=== PATIENT | female | born 1940 | race Caucasian/White ===

== ENCOUNTER → 2016-08-26 | Outpatient (CLI) | payer OTHER ==
[~2016-08-26] MED LIST: ASPI81TA21 PO; CHOL100010 PO; FISHOIL PO; LPR25 PO; TRIATAB3 PO
--- NOTE | 2016-08-26 13:11 | MAMMOGRAPHY REPORT ---
BILATERAL DIGITAL SCREENING MAMMOGRAM WITH CAD: 08/26/2016 CLINICAL HISTORY: Routine screening. Patient has no complaints. TECHNIQUE: Current study was also evaluated with a Computer Aided Detection (CAD) system. Bilatera l CC and MLO views were obtained. COMPARISON: Comparison is made to exams dated: 08/24/2015 mammogram, 08/20/2014 mammogram, 08/19/2013 mammogram, 08/17/2012 mammogram, 02/27/2012 mammogram, and 08/23/2011 mammogram - [facility]. BREAST COMPOSITION: There are scattered areas of fibroglandular density in both breasts. FINDINGS: No suspicious masses, calcifications, or areas of architectural distortion are noted in e ither breast. There has been no significant interval change compared to prior exams. IMPRESSION: ACR BI-RADS CATEGORY 1: NEGATIVE There is no mammographic evidence of malignancy. A 1 year screening mammogram is recommended. The p atient will receive written notification of the results. Approximately 10% of breast cancers are not detected with mammography. A negative mammographic repor t should not delay biopsy if a clinically suggestive mass is present. Radha Ross M.D. /:08/26/2016 12:13:16 Lead Massage Therapist: Seema GUALLPA(Jewel)(Torrie)(BD), [facility] letter sent: Normal 1/2 BI-RADS Code: ACR BI-RADS Category 1: Negative
== END | disposition home or self-care (01) ==
LOC: C.MAMM 11:06
PROVIDERS: ATTEND Internal Medicine
DX: Z12.31 Encounter for screening mammogram for malignant neoplasm of breast (principal)

== ENCOUNTER → 2017-08-14 | Outpatient (CLI) | payer OTHER ==
[~2017-08-14] MED LIST changes: +ASPI-319 PO; -ASPI81TA21 PO
[2017-08-14 17:23] LABS: BASO % 0.6 %; BASO ABS # 0.04 K/uL (0-0.2); EOS % 2.8 %; EOS ABS # 0.18 K/uL (0-0.5); HEMATOCRIT 42.3 % (37-47); HEMOGLOBIN 14.3 g/dL (12.0-16.0); IG# 0.02 K/uL (0.00-0.02); LYMPH % 33.9 %; LYMPH ABS # 2.17 K/uL (1.2-3.4); MEAN CELL VOLUME 84.9 fL (80-100); MEAN CORPUSCULAR HEMOGLOBIN 28.7 pg (25-34); MEAN CORPUSCULAR HGB CONC 33.8 g/dl (32-36); MEAN PLATELET VOLUME 8.8 fL (7.4-10.4); MONO ABS # 0.51 K/uL (0.11-0.59); NEUT % 54.4 %; NEUT ABS # 3.48 K/uL (1.4-6.5); PLATELET COUNT 221 K/uL (130-400); RED CELL DISTRIBUTION WIDTH SD 39.9 fL (36.4-46.3)
[2017-08-14 18:49] LABS: ALBUMIN 3.9 gm/dl (3.4-5.0); ALT/SGPT 40 U/L (12-78); AST/SGOT 24 U/L (15-37); BLOOD UREA NITROGEN 16 mg/dl (7-18); CALCIUM 8.4 mg/dl (8.5-10.1); CARBON DIOXIDE 28 mmol/L (21-32); CREATININE 0.93 mg/dl (0.60-1.20); GLUCOSE 89 mg/dl (70-99); POTASSIUM 3.7 mmol/L (3.5-5.1); SODIUM 141 mmol/L (136-145)
[2017-08-14 18:51] LABS: ALKALINE PHOSPHATASE 108 U/L (45-117); CHOLESTEROL 246 mg/dl (0-200); LDL CHOLESTEROL CALCULATED 140 mg/dl; TOTAL PROTEIN 7.9 gm/dl (6.4-8.2)
== END | disposition home or self-care (01) ==
LOC: C.LABPBG 15:10
PROVIDERS: ATTEND Internal Medicine
DX: I10 Essential (primary) hypertension (principal); R73.01 Impaired fasting glucose; E78.5 Hyperlipidemia, unspecified; E53.8 Deficiency of other specified B group vitamins; I65.29 Occlusion and stenosis of unspecified carotid artery; M54.5 Low back pain; S30.861A Insect bite (nonvenomous) of abdominal wall, initial encounter; W57.XXXA Bitten or stung by nonvenomous insect and other nonvenomous arthropods, initial encounter; E55.9 Vitamin D deficiency, unspecified

== ENCOUNTER → 2017-08-29 | Outpatient (CLI) | payer OTHER ==
--- NOTE | 2017-08-29 13:17 | MAMMOGRAPHY REPORT ---
BILATERAL DIGITAL SCREENING MAMMOGRAM TOMOSYNTHESIS WITH CAD: 08/29/2017 CLINICAL HISTORY: Routine screening. Patient has no complaints. TECHNIQUE: Breast tomosynthesis in addition to standard 2D mammography was performed. Current study was also evaluated with a Computer Aided Detection (CAD) system. COMPARISON: Comparison is made to exams dated: 08/26/2016 mammogram, 08/24/2015 mammogram, 08/19/2013 m ammogram, 02/27/2012 mammogram, 08/20/2014 mammogram, and 08/23/2011 ultrasound - [facility]. BREAST COMPOSITION: There are scattered areas of fibroglandular density in both breasts. FINDINGS: There are a few benign rim calcifications in the breasts. No suspicious mass, architectura l distortion or cluster of microcalcifications is seen. IMPRESSION: ACR BI-RADS CATEGORY 1: NEGATIVE There is no mammographic evidence of malignancy. A 1 year screening mammogram is recommended. The pa tient will receive written notification of the results. Approximately 10% of breast cancers are not detected with mammography. A negative mammographic report should not delay biopsy if a clinically suggestive mass is present. Mi Rajput M.D. ay/:08/29/2017 12:49:31 [place] Cleaner: Denise GUALLPA(Jewel)(Torrie), [facility] letter sent: Normal 1/2 BI-RADS Code: ACR BI-RADS Category 1: Negative
== END | disposition home or self-care (01) ==
LOC: C.MAMM 11:19
PROVIDERS: ATTEND Internal Medicine
DX: Z12.31 Encounter for screening mammogram for malignant neoplasm of breast (principal)

== ENCOUNTER 2025-03-04 05:22 | Observation (INO) ==
--- NOTE | 2025-02-04 15:33 | PAT Medication Instructions ---
Medication Instructions Date of Service February 04, 2025 Home Medications cholecalciferol (vitamin D3) 50 mcg (2,000 unit) tablet 2,000 units PO Q2D flaxseed oil 1,000 mg capsule 1,000 mg PO Q2D metoprolol succinate 25 mg tablet,extended release 24 hr 25 mg PO QAM STOP taking 2 weeks before surgery (or as soon as possible if surgery is within 2 weeks) flaxseed oil 1,000 mg capsule 1,000 mg PO Q2D DO NOT take the morning of surgery cholecalciferol (vitamin D3) 50 mcg (2,000 unit) tablet 2,000 units PO Q2D Take morning of surgery With a small sip of water, OTHERWISE NOTHING TO EAT OR DRINK AFTER MIDNIGHT: metoprolol succinate 25 mg tablet,extended release 24 hr 25 mg PO QAM Other Notes If you have any questions please call us at [phone] or [phone] or [phone] or [phone]
--- NOTE | 2025-02-13 11:26 | Anesthesiology Consultation ---
Date of Service February 13, 2025 Assessment & Plan (1) Encounter for pre-operative examination: - Infectious disease screening: Per assessment on 02/13/25- No known recent infectious disease contacts or current infectious disease symptoms. - Outpatient joint assessment: Pt currently scheduled for inpatient pathway. If surgeon requests review for outpatient joint pathway, patient is not a recommended candidate for outpatient joint program from anesthesia standpoint based on available information. - [place] PCP visit 01/27/25: "The patient presents for a medication follow-up visit. She states that she recently stopped utilizing her losartan due to "hot flashes". She notes that her symptoms have somewhat improved since discontinuing the medication, and she notes that she has been continuing to monitor her blood pressure at home with no substantial worsening in her overall blood pressure. Of note, the patient's initial blood pressure was elevated at 167/90. She remains asymptomatic. Of note, the patient is continuing to have issues with ongoing back pain as well as right hip pain. She states that she is continuing to follow with orthopedics, and she is tentatively scheduled for a right hip arthroplasty.." "Hypertension.. Ongoing issue for the patient. Currently holding losartan. Continue metoprolol. Initial blood pressure elevated; however, manual recheck of 144/84. Continue home monitoring.. Tentatively scheduled for hip arthroplasty. Orthopedic documentation reviewed.. Lumbar spondylosis.. Ongoing issue for the patient. Continue with conservative management. Following with orthopedics." Chart Review Chart Review: Acceptable Risk for Surgery and Patient seen in Pre Admission Testing Teaching & Discussion Pre-Anesthesia Teaching/Discussion Notes: Instructed NPO after midnight before surgery,except medications with 15 cc of water. Medication instructions provi ded according to the PAT guidelines. History Surgery Operation Date: 03/04/25 07:00 Proposed Procedures p Right Total Hip Arthroplasty - Keo Pace MD Height/Weight Height: 5 ft 3 in Weight: 79 kg Allergies Allergy/AdvReac Type Severity Reaction Status Date / Time Triamterene-hydrochlorothiazide AdvReac Leg cramps Uncoded 02/13/25 11:46 Medications Home Medications Medication Instructions Recorded Confirmed Last Taken cholecalciferol (vitamin D3) 50 2,000 units PO Q2D 08/27/18 02/04/25 12/13/23 10:00 mcg (2,000 unit) tablet flaxseed oil 1,000 mg capsule 1,000 mg PO Q2D 02/04/25 02/04/25 Unknown metoprolol succinate 25 mg 25 mg PO QAM 02/04/25 02/04/25 Unknown tablet,extended release 24 hr Past Medical History Medical History Adrenal cortical adenoma Abdomen/Pelvis CT 10/17/23: Stable bilateral adrenal gland nodules with the largest on the left measuring 2.1 cm. These favor benign adenomas. Per [facility] visit 08/28/24, documented notation of adrenal cortical adenoma 2019 which have been "very stable.. they are benign given the length of stability. no further follow-up necessary.." Atherosclerosis of aorta Carotid artery plaque Noted per records Carotid doppler 08/29/23: <50% b/l ICA stenosis Complex renal cyst Abdomen/Pelvis CT 10/17/23: Renal sinus cysts are seen bilaterally, left greater than right. Hiatal hernia Per records, patient denies History of Meniere disease Denies current issues History of prediabetes HTN (hypertension) Hx of migraine headaches Remote hx Hyperlipidemia Hx Hypertensive kidney disease with chronic kidney disease stage III Per records, patient denies Lumbar spondylosis Osteopenia Restless leg syndrome Urinary incontinence Exercise / Class Metabolic Activity II 4-5 Yardwork/Stairs/Walk up hill (one FS: No CP, no SOB) Past Family History Family History Denies family history of Ovarian cancer Prostate cancer Myocardial infarction Breast cancer Colorectal cancer Past Surgical History Surgical History History of cataract surgery R/L History of colonoscopy History of dilatation and curettage Hx of tonsillectomy S/P ALEKSANDR (total abdominal hysterectomy) Age 31 Status post cystoscopy 12/14/2023 Past Anesthesia History No Hx of Anesthesia Complications and No Family Hx of Anesthesia Complications History of PONV No Hx of PONV and Hx of Motion Sickness (Remote hx) Social History Smoking Status: Never smoker Do You Dip or Chew Tobacco: No Hx Alcohol Use: No Hx Substance Use: No substance use type: does not use Review of Systems + Palpitations. Patient denies chest pain, shortness of breath, dyspnea on exertion, fever, chills, cough, wheezing. Physical Exam Vital Signs BP 149/81 P 77 TEMP 97.6 SP02 97%RA RESP 16 Physical Mildly decreased cervical extension range of motion. Full TMJ range of motion. TMD 3 finger breaths Mallampati Score III Dentition: + missing teeth (sides/molars) Lungs: clear throughout to auscultation Cardiac: regular rate and rhythm, no murmurs noted Spine: normal Carotid arteries: negative bruit Extremities: no LE edema Lab Results Anesthesia Preop Results Results Anesthesia Widget: WBC 5.39 K/ul (4.8-10.8) 02/13/25 Hgb 13.8 g/dl (12.0-16.0) 02/13/25 Hct 41.6 % (37.0-47.0) 02/13/25 Plt 221 K/uL (130-400) 02/13/25 Na 142 mmol/L (136-145) 02/13/25 K 3.8 mmol/L (3.5-5.1) 02/13/25 Cl 109 mmol/L (98-107) H 02/13/25 CO2 27 mmol/L (21-32) 02/13/25 BUN 15 mg/dl (6-23) 02/13/25 Creat 0.75 mg/dl (0.6-1.2) 02/13/25 Glucose Level 108 mg/dl (70-99(Fasting)) H 02/13/25 PT 10.5 Seconds (9.0-12.0) 02/13/25 PTT 27 Seconds (21-31) 02/13/25 INR 1.0 (0.9-1.1) 02/13/25 Blood Type B Positive 02/13/25 Antibody Screen NEGATIVE 02/13/25 Testing Electrocardiogram Date: 12/27/24 SR at 66bpm. "Normal ECG" Chest X-Ray Date: 02/13/25 FINDINGS: Stable mild cardiomegaly without pulmonary vascular congestion. Stable hyperexpanded lungs. No consolidation or pleural effusion seen. IMPRESSION: No acute findings. Echocardiogram Date: 08/29/23 EF 65-70%. Mild cLVH. MIld mitral annular calcification. Moderate TR. No RWMA. Other Testing Carotid doppler Date: 08/29/23 <50% B/L ICA stenosis. Antegrade flow in b/l vertebral arteries. B/L subclavian artery signals are normal consistent with no significant arterial occlusion.
--- NOTE | 2025-02-27 07:52 | History & Physical Report ---
Date of Service February 27, 2025 Assessment & Plan (1) Arthritis of right hip: 84-year-old female with right leg pain and discomfort consistent with moderate to advanced hip arthritis along with lumbar spondylosis. I do think her hip is causing her significant problems. It is not just her hip but she has got back disease as well. Plan: We have discussed treatment option with the patient she would like to proceed with hip replacement. I do think this will help her significantly but is not Nestl going to relieve all of her symptoms. The risks and bents of total hip were Splane. Patient understands and desires to proceed. Informed consent is obtained. She is planning on being discharged to home with home health and her 's assistance. Will use aspirin for DVT prophylaxis. Will likely use a cemented stem due to her ageAnd osteoporosis. (2) Prediabetes: (3) Lumbar spondylosis: (4) Hyperlipidemia: (5) Hypertensive kidney disease with CKD stage III: History of Present Illness Chief Complaint: . Right hip and leg pain. Primary Care Provider: GOOD Anderson . The patient is an 84-year-old female from [facility] who presents for treatment of her right hip. She has got a year history of increasing right hip pain discomfort describes gotten worse and more disabling over time. She had more more trouble getting around. She describes lateral hip pain buttock pain groin pain rating down to her knee. Denies any numbness. The medicines help her minimally. She has difficulty putting her shoes and socks on. Is really limiting her quality of life and ability maintain an active lifestyle she would like to have her hip fixed. Allergies Allergy/AdvReac Type Severity Reaction Status Date / Time Triamterene-hydrochlorothiazide AdvReac Leg cramps Uncoded 02/13/25 11:46 Home Medications Medication Instructions Recorded Confirmed Type cholecalciferol (vitamin D3) 50 2,000 units PO Q2D 08/27/18 02/04/25 History mcg (2,000 unit) tablet flaxseed oil 1,000 mg capsule 1,000 mg PO Q2D 02/04/25 02/04/25 History metoprolol succinate 25 mg 25 mg PO QAM 02/04/25 02/04/25 History tablet,extended release 24 hr Past Med/Surg History Problem List Lumbar spondylosis Arthritis of right hip Hypermagnesemia Prediabetes Urinary incontinence (Chronic) Migraine Restless leg syndrome Hypertensive kidney disease with CKD stage III Vitamin D deficiency (Acute) Vitamin B12 deficiency (Acute) Lumbar facet arthropathy (Acute) Hyperlipidemia (Chronic) Hearing loss (Acute) Depression with anxiety (Acute) Encounter for pre-operative examination Hypertension (Chronic) Medical History Lumbar spondylosis History of prediabetes HTN (hypertension) Complex renal cyst Abdomen/Pelvis CT 10/17/23: Renal sinus cysts are seen bilaterally, left greater than right. Carotid artery plaque Noted per records Carotid doppler 08/29/23: <50% b/l ICA stenosis Adrenal cortical adenoma Abdomen/Pelvis CT 10/17/23: Stable bilateral adrenal gland nodules with the largest on the left measuring 2.1 cm. These favor benign adenomas. Per [facility] visit 08/28/24, documented notation of adrenal cortical adenoma 2019 which have been "very stable.. they are benign given the length of stability. no further follow-up necessary.." History of Meniere disease Denies current issues Hyperlipidemia Hx Osteopenia Urinary incontinence Hiatal hernia Per records, patient denies Atherosclerosis of aorta Hypertensive kidney disease with chronic kidney disease stage III Per records, patient denies Restless leg syndrome Hx of migraine headaches Remote hx Surgical History History of dilatation and curettage Hx of tonsillectomy Status post cystoscopy 12/14/2023 History of cataract surgery R/L S/P ALEKSANDR (total abdominal hysterectomy) Age 31 History of colonoscopy Family History Denies family history of Ovarian cancer Prostate cancer Myocardial infarction Breast cancer Colorectal cancer Social History Smoking Status: Never smoker Second Hand Exposure: Yes (hx, many years ago); Do You Dip or Chew Tobacco: No; Hx Alcohol Use: No Hx Substance Use: No Preferred Language: Polish Communication Ability: Effective Visual Impairment: No Limitations Hearing Ability: Hard of Hearing Store Consultant Required: No Beliefs That Will Affect Care: None marital status: Current Living Situation: Spouse current occupational status: retired Feels Safe at Home: Yes Diet: regular Diet Comment: regular caffeine: Yes during the past year weight has: remained stable Dental Care, Regularly: Yes Physical Activity Frequency: 1-2 Times per Week Physical Activity Frequency Comment: Importance of routine aerobic exercise stressed. At minimum 150-200 minute Seatbelt Use: always Sunscreen Use: Yes (As needed) Assistive Devices: None Review of Systems All systems reviewed & are unremarkable except as noted in HPI & below. Physical Exam . Physical examination reveals a pleasant elderly female. Looks in pretty good health. Examination of the right hip reveal patient walks with a cane of a slow gait. She does limp a little bit more on the right side. Leg lengths are pretty equal. She has pain and stiffness with hip motion. Internal rotation in neutral. Negative straight leg raise. No knee effusion. She is neurologically intact. Constitutional WD/WN, vitals as above Respiratory normal respiratory effort, lungs clear to auscultation Cardiovascular RRR, no murmur, no edema Gastrointestinal (Abdomen) normal bowel sounds, soft, nontender, no hepatosplenomegaly Results & Data Results & Data Laboratory Results . Diagnostic Findings . X-rays of the right hip were reviewed. She has a moderate hip arthritis. She has clearly got degenerative changes in her hip. Bone density looks pretty good. She got some lumbar spine disease as well with degenerative scoliosis. PG Care Time/CCT Total # of Minutes Spent Total Time Spent with Patient: Total time spent is greater than 50% in coordination of care (as documented) at patient's floor/unit and/or counseling patient: Coding Level of Care Code None Diagnoses Arthritis of right hip M16.11 Prediabetes R73.03 Lumbar spondylosis M47.816 Hyperlipidemia, unspecified hyperlipidemia type E78.5 Hyperlipidemia type: unspecified Hypertensive kidney disease with CKD stage III I12.9; N18.30 (4) Hyperlipidemia Hyperlipidemia type: unspecified Qualified Code(s): E78.5 - Hyperlipidemia, unspecified
[2025-03-04] MEDS: LR 500ML BOLUS, THEN 15ML/HR IV SCH (05:58)
[2025-03-04] MEDS: LR 60ML/HR IV SCH (05:59)
[2025-03-04] MEDS: ACETAMINOPHEN 500 MG TAB PO SCH ×2 (05:59→13:52)
[2025-03-04] MEDS: dexAMETHasone**PF** 10 MG/ML VIAL IV SCH (05:59)
[2025-03-04] MEDS: CeleBREX 200 MG CAP PO SCH (06:00)
[2025-03-04] MEDS: FAMOTIDINE 20 MG TAB PO SCH (06:00)
[2025-03-04] MEDS: METOCLOPRAMIDE HCL 10 MG TABLET PO SCH (06:00)
[2025-03-04] MEDS ORDERED: BUPIVACAINE 0.5 % 5 MG/1 ML PF 10ML VIAL ONE (06:29)
[2025-03-04] MEDS ORDERED: MIDAZOLAM HCL 1 MG/ML 2ML VIAL ONE (06:38)
[2025-03-04] MEDS ORDERED: PROPOFOL IV EMULSION 10 MG/ML 20 ML VIAL IV ONE ×2 (06:41→07:59)
[2025-03-04] MEDS: TRANEXAMIC ACID 1,000 MG **IV Pre-op IV SCH (06:53)
--- NOTE | 2025-03-04 07:01 | History & Physical Bridge Note ---
Date of Service March 04, 2025 History & Physical Bridge Note I have examined the patient, reviewed the History & Physical and in the interval since the performance of the History & Physical I have noted the following changes of clinical significance: no changes noted
[2025-03-04] MEDS ORDERED: HYDROmorphone INJ 2 MG/ML SYR/VIAL IV PRN (07:29)
[2025-03-04] MEDS ORDERED: ATROPINE SULFATE 0.1 MG/ML 10ML SYR IV PRN (07:29)
[2025-03-04] MEDS ORDERED: ONDANSETRON INJ 2 MG/ML 2 ML VIAL IV PRN ×2 (07:29→10:12)
[2025-03-04] MEDS ORDERED: PROMETHAZINE HCL 6.25 MG in SODIUM CHLORIDE 0.9% 50 ML IV PRN (07:29)
[2025-03-04] MEDS: BUPIVACAINE/EPINEPHRINE 0.5% MPF 1:200,000 30 ML VIAL ONE (07:47)
[2025-03-04] MEDS ORDERED: ONDANSETRON INJ 2 MG/ML 2 ML VIAL ONE (07:59)
--- NOTE | 2025-03-04 09:08 | Operative Report ---
PG Post Operative Report Pre & Post Diagnosis Operation Date: 03/04/25 07:00 Pre-Op Diagnosis: Right Hip Degenerative Joint Disease Post-Op Diagnosis: Right Hip Degenerative Joint Disease I identified the patient and participated in the time-out.: Yes Procedure Operation Date: 03/04/25 07:00 Actual Procedures p Right Total Hip Arthroplasty, Cemented(Right) - Keo Pace MD Surgeon Keo Paec MD Metal Buffer Tamir Mallory PA-C Estimated Blood Loss 100 Findings Consistent with Post-Op Diagnosis Specimens Right femoral head sent for pathology. Anesthesia Type Spinal MAC Complications none Disposition Accompanied Patient To Recovery: No Indications The patient is an 84-year-old female whose had a several year history of increasing right hip pain discomfort and decreased mobility of this consequently worse over the past year. She failed conservative measures. Her pain seem to localize a lot to the hip area. She does have some chronic back issues as well. She failed conservative measures. She elected proceed with total hip arthroplasty. She was fully aware this is not going to fix all of her arthritic symptoms and there was some component coming from her spine. Description of Procedure Operative implants consists of: 1 Biomet G7 size 52 mm acetabular shell. 2. 6.5 cancellous acetabular screws 135 mm in length and 125 mm length. 3. [place] hole bioassayist. 4. Highly cross-linked polyethylene liner with a 52 mm outer diameter and 36 mm inner diameter. 5. DePuy Sullivan size 3 high offset cemented femoral stem with a centralizer. 5. +1.5/36 mm ceramic articular ball. The patient was taken the op room, identified, placed on the operating table in the supine position. All contact areas were appropriately padded. IV antibiotics were provided by the anesthesia team. Spinal anesthetic had been implemented holding area. A Quintero catheter was placed in sterile fashion. The patient is then placed in the left lateral decubitus position. An axillary roll was placed. Distal Birkett position was used for positioning. The right hip and leg were then prepped and draped in usual sterile fashion. A posterolateral approach to the right hip was then performed to a curvilinear incision centered over the greater trochanter. Sharp dissection Through the subcutaneous tissue down of the IT band and gluteal fascia. The IT band gluteal fascia were then incised longitudinally in line with skin incision. The underlying greater bursa was excised. The piriformis and external rotators along with the posterior joint capsule were then released from the posterior aspect of the hip as a single layer. Hip was internally rotated and dislocated. A femoral neck osteotomy cut was made with Final Cut about 7 mm above the lesser trochanter. Femoral head was removed and sent for pathology. The femur was retracted anteriorly. Attention drawn to the acetabulum. The acetabulum labrum was excised. The pulmonary fat was excised. Sequential reaming the acetabular was then performed again with a size 43 and progressing up to a 51. I reamed a little with the 52 reamer and then placed a 52 mm Biomet acetabular shell in about 4 degrees lateral opening and 20 degrees of anteversion. I did remove a fairly significant anterior osteophyte. A trial liner was placed. Attention drawn the femur. The proximal femur was then with a cookie cutter followed by canal finder and lateralizing reamer. Then broached begin the size 1 progressing up to a 2. I could not quite get the 3 down but we did trial the hip in the +5 articular ball seem to be too tight. The +1 seem to fit most appropriately. I thought I could use the 3 offset stem broaching up to the level we did. All trial implants were removed. A cement restrictor was placed distally. A [place] hole bioassayist was placed in a highly cross-linked polyethylene liner was placed. A double batch [place] G cement was mixed. It was injected the canal and a size 3 high offset Sullivan femoral stem was then placed. All extraneous cement was removed. Once the cement hardened a +1.5/36 mm ceramic articular ball was placed. Hip was located once again found to be stable. Leg lengths seemed equal. Soft tissue tension seemed appropriate. Attention drawn toward closing. The wound was irrigated cosigns pulsatile lavage solution. I did inject locally with 60 cc of absent Marcaine with epinephrine. The posterior capsule and external rotators were repaired through drill holes in the posterior trochanter with #2 Tycron suture. The IT band gluteal fascia then closed in 1 PDS suture running fashion. Subcutaneous tissue then closed in 2 layers the deep layer and 1 Vicryl suture and subcutaneous tissues with 2-0 Dexon suture in a buried interrupted fashion. Skin was closed skin zain. Leg was then cleaned and dried and a sterile dressing with Xeroform, 4 fours, sterile ABD pad and Medipore tape was applied. The patient then transferred to the recovery room in stable condition. Patient tolerated procedure well and there were no complications. Tamir Mallory, my physician child care center assistant director, was present for the entire procedure. His assistance was essential and required for appropriate patient positioning, prepping and draping, surgical exposure, performing the technical details of the operation, placement the implants, closure of the wound, and placement of the sterile bandage. I attest to the content of the Intraoperative Record and any orders documented therein. Any exceptions are noted below.
--- NOTE | 2025-03-04 09:23 | XRay Report ---
XR hip 1V RT w pelvis CLINICAL HISTORY: IN PACU - Post Surgical COMPARISON: 08/26/2024 FINDINGS: Right hip prosthesis shows no hardware complication. There is expected soft tissue gas. Sk in zain are present. IMPRESSION: Unremarkable postoperative exam. ACT 112: Negative or not required by law. Electronically signed by: Hu Hall M.D. 03/04/2025 9:22 AM
[2025-03-04] MEDS ORDERED: ePHEDrine sulfate 50 MG/5 ML SYR ONE (09:32)
[2025-03-04] MEDS ORDERED: PHENYLEPHRINE HCL 10 MG/ML VIAL ONE (09:32)
[2025-03-04] MEDS ORDERED: NON-FORMULARY MEDICATION (Flaxseed Oil 1,000 mg Capsule) PO SCH (10:12)
[2025-03-04] MEDS ORDERED: HYDROmorphone INJ 0.5 MG/0.5 ML SYR IV PRN (10:12)
[2025-03-04] MEDS ORDERED: ALUMINUM/MAGNESIUM SUSP 30 ML UDC PO PRN (10:12)
[2025-03-04] MEDS ORDERED: METOCLOPRAMIDE HCL INJ 5 MG/ML 2 ML VIAL IV PRN (10:12)
[2025-03-04] MEDS ORDERED: NALOXONE HCL 0.4 MG/1 ML VIAL/CARP IV PRN (10:12)
[2025-03-04] MEDS ORDERED: MAGNESIUM HYDROXIDE SUSP 30 ML UDC PO PRN (10:12)
[2025-03-04] MEDS ORDERED: SENNA 8.6 MG TAB PO SCH (10:12)
[2025-03-04] MEDS: SODIUM CHLORIDE 0.9% 1,000 ML IV SCH (10:53)
[2025-03-04] MEDS: ASPIRIN 81 MG ECTAB PO SCH (11:00)
[2025-03-04] MEDS: DOCUSATE SODIUM 100 MG CAP PO SCH (11:00)
[2025-03-04] MEDS: MULTIVITAMIN TAB PO SCH (11:01)
[2025-03-04] MEDS: CHOLECALCIFEROL 25 MCG (1000 UNITS) TAB PO SCH (11:01)
--- NOTE | 2025-03-04 13:13 | Anesthesiology Progress Note ---
Date of Service March 04, 2025 Anesthesia Post Procedure Vital Signs Vital Signs: Temp Pulse Pulse Resp BP Pulse Ox O2 Del Method 03/04/25 12:10 36.5 C 90 17 160/76 H 96 Room Air 03/04/25 11:08 36.5 C 89 17 174/83 H 97 Room Air 03/04/25 10:40 36.5 C 89 17 171/81 H 95 Room Air 03/04/25 10:10 36.4 C L 92 H 17 170/80 H 95 Room Air 03/04/25 09:50 94 H 20 162/81 H 94 Room Air 03/04/25 09:35 36.5 C 91 H 17 164/80 H 94 Room Air 03/04/25 09:25 98 H 19 139/75 96 Room Air 03/04/25 09:15 93 H 23 122/80 95 Room Air 03/04/25 09:05 94 H 19 144/73 H 99 Room Air 03/04/25 08:56 37.1 C 94 H 13 130/63 95 Room Air 03/04/25 05:57 36.5 C 78 18 187/100 H 98 Room Air Transfer of Care Handoff Completed per policy Notes Mental Status: alert / awake / arousable and participated in evaluation Nausea / Vomiting: adequately controlled Pain: adequately controlled Airway Patency, RR, SpO2: stable & adequate BP & HR: stable & adequate Hydration State: stable & adequate Neuraxial Anesthesia: was administered and sensory block is resolving Anesthetic Complications: no major complications apparent and Pt Satisfied with anesthetic care
[2025-03-04] MEDS: TRANEXAMIC ACID / 0.7% NACL 1,000 MG/100 ML BAG IV SCH (15:06)
[2025-03-04] MEDS: ASCORBIC ACID 500 MG TAB PO SCH (17:12)
[2025-03-04] MEDS: KETOROLAC TROMETHAMINE 15 MG/ML VIAL IV SCH (17:13)
[2025-03-04] MEDS: SENNA 8.6 MG TAB PO SCH (19:46)
[2025-03-05 04:09] VITALS: O2SAT 96
[2025-03-05 06:12] LABS: Hematocrit (blood only) 32.8 % (37.0-47.0); Hemoglobin 11.1 g/dL (12.0-16.0); Immature Granulocytes # (auto) 0.07 K/uL (0.01-0.20); Immature Granulocytes % (auto) 0.5 %; Mean Corpuscular Hemoglobin 28.0 pg (25.0-34.0); Mean Corpuscular Volume 82.6 fL (80.0-100.0); Platelet Count 218 K/uL (130-400); RDW Standard Deviation 39.3 fL (36.4-46.3); Red Blood Count 3.97 M/uL (4.20-5.40); White Blood Count 14.47 K/ul (4.8-10.8)
[2025-03-05 06:37] LABS: Anion Gap 6.0 (3-11); Blood Urea Nitrogen 21.0 mg/dl (6-23); Calcium 8.2 mg/dl (8.6-10.3); Carbon Dioxide 24.0 mmol/L (21-32); Chloride 111.0 mmol/L (98-107); Creatinine Clr Calc Pharmacy 46.9 ml/min; Glucose 131.0 mg/dl (70-99(Fasting)); Potassium 4.4 mmol/L (3.5-5.1); Sodium 141.0 mmol/L (136-145)
[2025-03-05 07:04] VITALS: RESP 18
[2025-03-05] MEDS: METOPROLOL SUCC 25MG EXT REL TAB PO SCH (08:23)
[2025-03-05] MEDS: dexAMETHasone 10 MG in SYRINGE 0 ML IV SCH (08:23)
--- NOTE | 2025-03-05 08:28 | Orthopedic Progress Note ---
Date of Service March 05, 2025 Assessment & Plan (1) S/P total right hip arthroplasty: * Continue Current Treatment * Disposition: home * Daily treatment: Physical Therapy/ Occupational Therapy per protocol * Weight bearing status: WBAT with hip precautions * Continue to monitor for ABLA * Pain control * DVT prophylaxis, ASA * Office/hospital f/u 2 weeks for progress check and staple/suture removal * Plan for discharge today pending PT/OT clearance Subjective . Active Problems: S/p right LELO POD 1 84 y/o female s/p right LELO. Doing well overall, pain managed and improved function. Denies fever/chills, chest pain/SOB, nausea/vomiting. Otherwise no complaints. Review of Systems All systems reviewed & are unremarkable except as noted in HPI & below. Physical Exam . * General: Alert and oriented, no acute distress * Constitutional: well-developed, well-nourished. * Respiratory: Normal respiratory effort, no distress * Gastrointestinal: No tenderness to palpation, no rigidity or guarding. * Skin: No rash or lesion. * Neurologic: Grossly normal * Musculoskeletal: right hip surgical dressing CDI, not removed for exam. Otherwise no obvious deformity or overlying skin changes. Diffuse TTP proximal thigh and hip region. Otherwise no specific tenderness of distal thigh, lower leg, foot/ankle. AROM hip flexion intact. AROM foot/ankle intact. Sensation intact plantar/dorsal foot. Brisk capillary refill. Results & Data Results & Data Laboratory Results . Diagnostic Findings . Hip/Pelvis X-Ray 03/04/25 09:01 XR hip 1V RT w pelvis CLINICAL HISTORY: IN PACU - Post Surgical COMPARISON: 08/26/2024 FINDINGS: Right hip prosthesis shows no hardware complication. There is expected soft tissue gas. Skin zain are present. IMPRESSION: Unremarkable postoperative exam. ACT 112: Negative or not required by law. Electronically signed by: Hu Hall M.D. 03/04/2025 9:22 AM PG Care Time/CCT Total # of Minutes Spent Total Time Spent with Patient: Total time spent is greater than 50% in coordination of care (as documented) at patient's floor/unit and/or counseling patient: Coding Level of Care Code 38016 Post Operative Follow-Up Diagnoses S/P total right hip arthroplasty Z96.641
[2025-03-05 11:06] VITALS: BP 134/74; PULSE 76; TEMP 97.9
== END 2025-03-05 11:59 | disposition home health service (06) ==
LOC: 3E 05:22 → ASU 05:22